=== PATIENT | female | born 1985 | race African-American/Black ===

== ENCOUNTER 2017-06-14 15:29 | Emergency (ER) | payer BC ==
[~2017-06-14] VITALS: Ht 160 cm; Wt 132.9 kg
[~2017-06-14 15:29] MED LIST: AZITHROMYCIN 2250 MG PO; BACTRIM DS TAB1 EACH PO; DIFLUCAN150 MG PO; KEFLEX500 MG PO; LISINOPRIL10 MG PO; METFORMIN HCL500 MG PO; NAPROSYN500 MG PO; NOHOMEMEDICATIONS; NORCO 5-325 TA1 EACH PO; PREDNISONE 20 M20 MG PO; PYRIDIUM200 MG PO; VENTOLIN HFA 1818 GM INH; ZPAK PO
[2017-06-14 15:43] LABS: URINE BILIRUBIN NEGATIVE (Negative); URINE BLOOD 3+ (Negative); URINE CLARITY CLOUDY; URINE GLUCOSE-RANDOM* NEGATIVE (Negative); URINE KETONES TRACE (Negative); URINE LEUKOCYTES 1+ (Negative); URINE NITRITE NEGATIVE (Negative); URINE PROTEIN (DIPSTICK) 2+ (Negative); URINE SPECIFIC GRAVITY >= 1.030 (1.005-1.035); URINE UROBILINOGEN 0.2 E.U./dl (0.2-1.0)
[2017-06-14 15:49] LABS: URINE COLOR AMBER
[2017-06-14 15:51] LABS: CASTS None Seen /LPF (None Seen); CRYSTALS None Seen /LPF (None Seen); SQUAMOUS 4-10 Moderate /LPF (0-3); URINE RBC >20 Many /HPF (0-2)
[2017-06-14 15:52] LABS: BACTERIA 1-9 Few /HPF (None Seen); URINE WBC 0-5 Rare /HPF (0-5)
[2017-06-14 16:49] LABS: ABSOLUTE NEUTROPHILS 3.1 thou/uL (1.4-8.2); BASOPHILS 0.6 % (0.0-2.0); EOSINOPHILS 1.7 % (0.0-3.0); HEMATOCRIT 36.1 % (37.0-47.0); HEMOGLOBIN 11.8 gm/dL (12.0-15.0); LYMPHOCYTES 40.9 % (24.0-44.0); MCH 28.5 pg (26.0-34.0); MCHC 32.8 g/dL (28.0-37.0); MCV 86.9 fL (80.0-100.0); MONOCYTES 9.8 % (1.0-8.0); PLATELET COUNT 410 thou/uL (150-400); RBC 4.15 mil/uL (4.20-5.00); RDW 15.2 % (10.5-14.5); WBC 6.7 thou/uL (4.0-11.0)
[2017-06-14 16:57] LABS: CREATININE 0.7 mg/dL (0.6-1.0); POTASSIUM 3.4 mmol/L (3.5-5.1)
[2017-06-14 18:44] VITALS: BP 153/88
== END 2017-06-14 18:47 | disposition home or self-care (01) ==
LOC: ER 15:29
PROVIDERS: Physician Assistant
DX: O03.4 Incomplete spontaneous abortion without complication (principal)